=== PATIENT | male | born 1955 | race Caucasian/White ===

== ENCOUNTER 2024-12-19 19:03 | Outpatient (CLI) | payer MEDICARE, SELFPAY | END 2024-12-19 19:04 | disposition home or self-care (01) | LOC: AMB 12-22 09:40 | PROVIDERS: PCP Family Medicine; Visit Provider Internal Medicine | DX: R41.82 Altered mental status, unspecified (principal) | CPT/HCPCS: A0998 ==

== ENCOUNTER 2024-12-19 19:41 | Emergency (ER) | payer MEDICARE, SELFPAY ==
[2024-12-19] VITALS (14 sets, daily range): BP systolic 115–137; BP diastolic 74–86; PULSE 42–51; RESP 15–20; TEMP 36.2; O2SAT 95–100; BMI 23.2
--- OUTSIDE RECORDS SUMMARY | 2024-12-19 19:44 | XMS_ITS | Clinical Summary ---
Author Organization [facility] Address [address] [place] [id number] Care Team Providers Care Nutritional Services Cook Name Role Phone Emir Bagley MD Primary Care Provider Allergies No known active allergies Medications omega-3 fatty acids-vitamin E (FISH OIL) 1,000 mg Cap Take 2 capsules by mouth. 0 0 Active cholecalciferol (VITAMIN D) 1,000 unit capsule Take 4 capsules by mouth once daily. 0 0 Active glucosamine-ara droitin, 500-400 mg, (COSAMIN DS 500/400) 500-400 mg cap Take 1 capsule by mouth 2 times daily. 0 4 Active multivitamin (MVI) tabletIndication s:Routine general medical examination at a health care facility Test 90 tablet 0 Active zolpidem (AMBIEN) 10 mg tabletIndication s:Insomnia, idiopathic Take 1 Tablet (10 mg) by mouth at bedtime if needed for Sleep. 10 Tablet 4 Active tadalafiL (CIALIS) 10 mg tabletIndication s:Erectile dysfunction, unspecified erectile dysfunction type 1/2 to one tab oral daily as needed. Take 30 minutes before sexual activity. 30 Tablet 6 4 Active Active Problems Problem Noted Date Diagnosed Date Erectile dysfunction 01/12/2023 Paroxysmal atrial fib; ablation 2015. 01/12/2023 Prediabetes 01/12/2023 Increased prostate specific antigen (PSA) veloci ty 01/12/2023 Personal history of colonic polyps 05/05/2010 Overview (09/21/2021): Colonoscopy 04/2010 polyps repeat in 5 years Colonoscopy 04/2015 normal repeat in 5 years Colonoscopy 09/2021 polyp, repeat in 7 years Resolved Problems Problem Noted Date Diagnosed Date Resolved Date Paroxysmal A-fib 01/12/2023 06/12/2023 Overview (01/12/2023): Ablation 2014 Paroxysmal atrial fibrillation 01/17/2013 07/14/2021 Encounters Date Type Department Care Team Description 12/19/2024 Telephone [facility] [address] [place] [address] Bina Thakkar AuD hearing aid case 12/10/2024 Orders Only [facility] Scanner 1 scan: (1-Ord) [facility], SHAVE BIOPSY RT NASAL AL, 12/10/2024 12/09/2024 11:00 AM CDT Office Visit [facility] [address] [place] [address] Bina Thakkar AuD Hearing Aid (BUTLER consult) 12/09/2024 10:00 AM CDT Office Visit [facility] [address] [place] [address] Bina Thakkar AuD Hearing Problem (Hearing test) 12/08/2024 Travel 12/02/2024 Telephone [facility] [address] [place] [address] Emir Bagley MD Referral (Hearing Test ) from Last 3 Months Immunizations Immunization Administration Dates Next Due COVID-19 vaccine ([employer] 30mcg/0.3mL) PF, MDV 08/24/2020,08/03/2020 HepA-HepB (Twinrix) 04/22/2008,10/31/2007,200710/26/2007 Influenza, High-dose Quadriv alent Inactivated 06/15/2022 Influenza, IIV3 (Age >=3 years) 04/13/2012,05/10 Influenza, IIV4 05/26/2019,04/21/2014 Influenza, IIV4 (=>6mos) MDV 04/19/2015 Influenza, Inactivated AIIV4 (Age 65+ Years) Preserv Free 06/12/2023,07/14/2021,07/05/2020 Influenza, Injectable, Mdck, Quadrivalent, W/preservative 05/26/2019 Pneumococcal Conj 20-valent (Prevnar 20) 023 Pneumococcal Poly,23-Valent (Pneumovax) 03/05/20 21 Td (Age >=7 Years) 08/29/2000 Td, Preservative Free (age >= 7 Years) 0 Tdap 04/14/2010 Zoster (Shingrix-RZV, recombinant) 03/20/2020, Family History Medical History Relation Name Comments Cancer-prostate Father Andrews Alejandra Sr 70's Hypertension Father Andrews Alejandra Sr Stroke Maternal Grandfather Ronn Tavares TIA's Heart Disease Maternal Grandmother maybe early in life Heart failure Mother Carol Ann Alejandra Stroke Mother Carol Ann Alejandra Other Other AAA in PGF 50's , Father later in life Cancer Sister AML at 70. Relation Name Status Comments Father Andrews Alejandra Sr Alive Maternal Grandfather Ronn Tavares Maternal Grandmother Mother Carol Ann Alejandra Alive Other Sister Social History Tobacco Use Types Packs/Day Years Used Date Smoking Tobacco: Never Smokeless Tobacco: Never Tobacco Cessation:Counseling Given: No Alcohol Use Standard Drinks/Week Comments Yes 2 (1 standard drink = 0.6 oz pur e alcohol) 2-3/week PHQ-2 Answer Date Recorded PHQ-2 TOTAL SCORE 0 03/27/2024 Social Connections Answer Date Recorded Do you often feel lonely or isolated from those around you? 0 03/27/2024 Financial Resource Strain Answer Date R ecorded Difficulty of Paying Living Expenses 3 03/27/2024 Difficulty of Paying Living Expenses Not on file 03/27/2024 Food Insecurity Answer Date Recorded Do you worry your food will run out before you are able to buy more? 1 03/27/2024 Transportation Needs Answer Date Record ed Does lack of transportation keep you from medica l appointments? 1 03/27/2024 Does lack of transportation keep you from work, meetings or getting things that you need? 1 03/27/2024 Housing Stability Answer Date Recorded What is your housing situation today? 1 03/27/2024 Utilities Answer Date Recorded Do you have trouble paying f or utilities (for example, heat, electricity, water, phone)? 1 03/27/2024 Sex and Gender Information Value Date Recorded Sex Assigned at Male 07/10/2021 9:32 PM [employer] Legal Sex Male 5:26 AM [employer] Gender Identity Male 07/10/2021 9:32 PM [employer] Sexual Orientation Straight 07/10/2021 9: 32 PM [employer] Obstetrics History Last Filed Vital Signs Vital Sign Reading Time Taken Comments Blood Pressure 125/77 03/27/2024 7:43 AM CDT Pulse 49 03/27/2024 7:43 AM CDT Temperature 36.9 C (98.4 F) 11/01/2016 10:12 AM CDT Respiratory Rate 16 10/31/2014 7:52 AM CDT Oxygen Saturation 98% 03/27/2024 7:43 AM CDT Inhaled Oxygen Concentration - - Weight 86.3 kg (190 lb 3.2 oz) 03/27/2024 7:43 A M CDT Height 191 cm (6' 3.2) 03/27/2024 7:43 AM CDT Body Mass Index 23.65 03/27/2024 7:43 AM CDT Plan of Treatment Health Maintenance Due Date Last Done Comments COVID-19 vaccine series ( season) 2024 11/01/2021, 05/26/2021, 08/24/2020, Additional history exists Influenza Vaccine (Season Ended) 2025 06/12/2023, 07/14/2021, 07/05/2020, Additional history exists BMI (ht and wt on same day) for age 18+ 03/27/2025 03/27/2024, 01/12/2023, 07/14/2021, Additional history exists Depression screening for age 12+ 03/27/2025 03/27/2024, 01/12/2023, 07/14/2021, Additional history exists Medicare Wellness for age 65+ 03/28/2025, 01/12/2023, 07/14/2021 Colonoscopy through age 75 09/21/202809/21, 09/21/2021, 09/21/2021, Additional history exists Lipids for age 45-75 03/27/2029 03/27/2024, 01/10/2023, 07/13/2021, Additional history exists Tetanus booster 09/15/2029 09/16/2019, 01/2010, 08/29/2000 RSV vaccine for adults or (1 - 1-dose 75+ series) 2030 Hepatitis B series for 19+ Completed 04/22, 10/31/2007, 09/25/2007 Tdap Completed 04/14/2010 Hepatitis C screening for ag e 18-79 Completed 06/18/2015 Zoster (shingles) series for age 50+ Completed 03/20/2020, 09/26/2019 Pneumococcal series for age 50+ Completed 3, 03/05/2021 Procedures Procedure Name Priority Date/Time Associated Diagnosis Comments SCAN-OPERATIVE/PROCE DURE REPORT 12/10/2024 12:00 AM CDT LIPID PANEL W REFLEX MEASURED LDL Routine 03/27/2024 8:34 AM CDT Lipid screening COLONOSCOPY SCREENING Routine 09/21/2021 10:16 AM CDT History of colon polyps ANTI HCV Routine 06/18/2015 7:47 AM [employer] Need for hepatitis C screening test from Last 3 Months or Most Recently Relevant to Health Maintenance Results * SCAN-OPERATIVE/PROCEDURE REPORT (12/10/2024 12:00 AM CDT) us Scanner OTHER Final Result * LIPID PANEL W REFLEX MEASURED LDL (03/27/2024 8:34 AM CDT) CHOLESTEROL, TOTAL 168 <200 mg/dL [facility] HDL CHOLESTEROL 50 > OR = 40 mg/dL [facility] TRIGLYCERIDES 93 <150 mg/dL [facility] LDL-CHOLESTEROL 99 mg/dL (calc) [facility] Comment: Reference range: <100 Desirable range <100 mg/dL for primary prevention; <70 mg/dL for patients with CHD or diabetic patients with > or = 2 CHD risk factors. LDL-C is now calculated using the Taurus-Dixon calculation, which is a validated novel method providing better accuracy than the Friedewald equation in the estimation of LDL-C. Taurus MUIR et al. ANTOINE. 2013;310(19): 2037-2273 (http://education.StepsAway.[employer]/faq/SJV019) CHOL/HDLC RATIO 3.4 <5.0 (calc) [facility] NON HDL CHOLESTEROL 118 <130 mg/dL (calc) [facility] Comment: For patients with diabetes plus 1 major ASCVD risk factor, treating to a non-HDL-C goal of <100 mg/dL (LDL-C of <70 mg/dL) is considered a therapeutic option. Blood BLOOD SPECIMEN / Unknown 03/27/2024 8:34 AM CDT 03/27/2024 8:35 AM CDT Emir Bagley MD CHEMISTRY Final Result [facility] [address] [place] [address], [employer] [id number] * COLONOSCOPY (09/21/2021 10:04 AM CDT) 09/21/2021 10:0 4 AM CDT Narrative Transcriptions Taurus Salgado MD - 09/21/2021 11:10 AM CDT Patient Name: Andrews Alejandra Procedure Date: 09/21/2021 Gender: Male Date of : 1955 Admit Type: Outpatient Procedure: Colonoscopy Proceduralist: Taurus Salgado MD , Jazmin Garcia (Nurse) Referring MD: Emir Bagley Indications/Pre-Op Diagnosis: High risk colon cancer surveillance:Personal history of adenoma less than 10 mm in size, Last colonoscopy: April 2015 Medications: Fentanyl 100 micrograms IV, Midazolam 4 mgIV, The level of sedation administered wasmoderate Procedure Description: The patient had risks, benefits and alternatives explained to andgave informed consent. The patient had a stable cardiopulmonary status and judged an adequate candidate for conscious sedation. The [id number] was passed through the anus and advanced tothe cecum, identified by appendiceal orifice and ileocecal valve. The colonoscopy was performed without difficulty. The patient toleratedthe procedure well. The quality of the bowel preparation was good. The ileocecal valve, appendiceal orifice, and rectum were photographed. Complications: No immediate complications. Estimated Blood Loss & Specimen: Estimated blood loss: none. Specimen collected - None Findings: The perianal and digital rectal examinations were normal. A 3 mm polyp was found in the ascending colon. The polyp was sessile. The polyp was removed with a cold snare. Resection was complete, butthe polyp tissue was not retrieved. The exam was otherwise without abnormality on direct and retroflexion views. The perianal and digital rectal examinations were normal. Impressions/Post-Op Diagnosis: - One 3 mm polyp in the ascending colon, removed with a cold snare. Complete resection. Polyp tissue not retrieved. - The examination was otherwise normal on direct and retroflexionviews. Recommendation: - Patient has a contact number available for emergencies. The signsand symptoms of potential delayed complications were discussed with the patient. Return to normal activities tomorrow. Written discharge instructions were provided to the patient. - Resume previous diet. - Continue present medications. - Repeat colonoscopy in 7 years for surveillance. Moderate Sedation: Moderate (conscious) sedation was administered by the endoscopy nurse and supervised by the endoscopist. The following parameters were monitored: oxygen saturation, heart rate, respiratory rate, blood pressure, adequacy of pulmonary ventilation and reponse to care. Please refer to the patient's medical record flowsheets and nursing notes for moderate sedation details. Total physician intraservice time was 26 minutes. Taurus Salgado MD 09/21/2021 11:10:09 AM This report has been signed electronically. Note Initiated On: 09/21/2021 10:04 AM Procedure Code(s): --- Professional --- 95916, Colonoscopy, flexible; with removalof tumor(s), polyp(s), or other lesion(s) bysnare technique Diagnosis Code(s): --- Professional --- Z86.010, Personal history of colonicpolyps K63.5, Polyp of colon CPT copyright 2020 [employer]. All rights reserved. The codes documented in this report are preliminary and upon care transport nurse reviewmay be revised to meet current compliance requirements. Scope In: 10:41:37 AM Scope Withdrawal Time 0 hours 13 minutes 25 seconds Scope Out: 11:03:44 AM us Taurus Salgado MD PROCEDURE ORD Final Res ult * ANTI HCV [93321.2] (06/18/2015 7:47 AM [employer]) HEPATITIS C ANTIBODY Non-Reacti ve Non-Reacti ve 06/18/2015 2:29 PM [employer] [facility] Blood specimen (specimen) BLOOD SPECIMEN / Unknown Venipuncture / Unknown 06/18/2015 7:47 AM [employer] 06/18/2015 7:47 AM [employer] Narrative [facility] - 06/18/2015 2:29 PM [employer] Antibodies to HCV not detected; does not exclude the possibility of exposure to HCV. us Emir Bagley MD SEND OUTS Final Result [facility] 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, 12/31/2002 * Full Code (Latest Code Status on File) Date Activated Date Inactivated Comments 10/30/2014 6:51 AM 10/30/2014 12:21 PM Care Teams Nutritional Services Cook Relationship Specialty Start Date End Date Emir Bagley MD [address] [place] [address] PCP - General 09/25/07
--- NOTE | 2024-12-19 19:58 | ED_ITS ---
HPI - General Adult General Chief complaint: Neuro Symptoms/Altered Deficit Stated complaint: confusion/leg bouncing/passed out Time Seen by Provider: 12/19/24 19:58 History of Present Illness HPI narrative: around 1845 was making dinner and looking at his phone and reports he was having a strange leg movement and making strange responses to her questions. walked with him to the couch, and he then got very weak and almost fell onto the chair, asked him if he was okay and he responded with I guess I am waking up from the [employer] denies hx of similar events, denies chronic health problems besides a hx of afib ablation in 2014. had some double vision on the way here, states he feels back to normal now. no weakness or obvious [age] old man presenting to the emergency department concern strange behavior Has apparently had of dizzy few days but not necessarily atypical what is atypical however res had a couple of nights of poor sleep. Has been exercising playing [employer] regularly without difficulty. Did take a shot to the left eye but had goggles on. Noted some slight bruising he says. After taking a nap he had, the 1 of the day, he got up discussing what to make for supper with his spouse. He was standing in the kitchen suddenly not responding and staring at his phone. He began lifting his right leg regularly. She guided him to the couch where he sat down in tip to his right and eyes were closed any. Not be responding. Breathing normally. Woke then to prompting and said something about waking from the [employer]. Did not have any sense of chest pressure or shortness of breath or palpitations. He does have a history of atrial fibrillation with an ablation. Following this event he had noted some double vision; not vertical diplopia. No headache. Does not really get headaches. There is no focal loss of strength fresh weakness. Feels normal now. Was not feeling nauseated. Does not feel excessively fatigued at the moment. EMS did evaluate he says with blood sugar of 110. They came by private car to the ER. Spouse notes him to be a joke stir and that thought he was playing around initially. He does not have recollection of this event until told him to call his son is a back shoe cutter and he noted this double vision. Spouse estimates this event of lasted maybe 8-10 minutes. Acknowledges also that he has been under a lot of stress lately Recalls later that he had had a tadalifil and small amount of beer prior to this event. Related Data Home Medications ?Medication ?Instructions ?Recorded ?Confirmed No Known Home Medications 12/19/2412/07 Allergies Allergy/AdvReac Type Severity Reaction Status Date / Time No Known Drug Allergies Allergy Verified 12/19/24 19:50 Review of Systems Status of ROS: Reports: 6 or more systems reviewed and unremarkable except as noted in History and below Exam Narrative: Exam Narrative: Very pleasant. NAD. Good energy. Cranial nerves 2-12 are intact. No nysta gmus evident. Pupils are 3 mm and equal. Moving all extremities without difficulty. Well-perfused Good strength throughout. No ataxia and demonstrated. Head is atraumatic. Heart in slow but regular rate and regular rhythm Const: Vital Signs, click to edit/add: Vital Signs - 24 hr 12/19/24 19:45 12/19/24 19:59 12/19/24 20:00 Temperature 97.1 F L Pulse Rate 43 L 42 L Pulse Rate [Pulse Oximeter] 51 L Respiratory Rate 16 Blood Pressure 132/81 Blood Pressure [Ri ght Upper Arm] 137/74 Pulse Oximetry 97 98 99 Oxygen Delivery Me thod Room Air 12/19/24 20:02 12/19/24 20:15 12/19/24 20:17 Temperature Pulse Rate 43 L 42 L 44 L Pulse Rate [Pulse Oximeter] Respiratory Rate 16 Blood Pressure 121/80 132/86 Blood Pressure [Ri ght Upper Arm] Pulse Oximetry 99 100 97 Oxygen Delivery Me thod 12/19/24 20:30 12/19/24 20:32 12/19/24 20:45 Temperature Pulse Rate 44 L 45 L Pulse Rate [Pulse Oximeter] Respiratory Rate Blood Pressure 115/82 Blood Pressure [Ri ght Upper Arm] Pulse Oximetry 97 97 Oxygen Delivery Me thod 12/19/24 20:47 12/19/24 21:06 12/19/24 21:07 Temperature Pulse Rate 49 L 49 L Pulse Rate [Pulse Oximeter] Respiratory Rate 15 20 Blood Pressure 120/84 129/83 Blood Pressure [Ri ght Upper Arm] Pulse Oximetry 95 98 97 Oxygen Delivery Me thod 12/19/24 21:15 12/19/24 21:17 Temperature Pulse Rate 46 L Pulse Rate [Pulse Oximeter] Respiratory Rate 18 16 Blood Pressure 124/80 Blood Pressure [Ri ght Upper Arm] Pulse Oximetry 99 Oxygen Delivery Me thod Documenting provider has reviewed patient's vital signs: yes Course Vital Signs Vital signs: Initial Vital Signs Temperature 97.1 F L 12/19/24 19:45 Temperature Source Temporal Artery Scan 12/19/24 19:45 Pulse Rate 51 L 12/19/24 19:45 Respiratory Rate 16 12/19/24 19:45 Blood Pressure 137/74 12/19/24 19:45 Blood Pressure Mean 95 12/19/24 19:45 Blood Pressure Position Sitting 12/19/24 19:45 Pulse Oximetry 97 12/19/24 19:45 Oxygen Delivery Method Room Air 12/19/24 19:45 Vital Signs Temperature 97.1 F L 12/19/24 19:45 Pulse Rate 51 L 12/19/24 19:45 Respiratory Rate 16 12/19/24 19:45 Blood Pressure 137/74 12/19/24 19:45 Pulse Oximetry 97 12/19/24 19:45 Oxygen Delivery Method Room Air 12/19/24 19:45 Temperature 97.1 F L 12/19/24 19:45 Pulse Rate 46 L 12/19/24 21:15 Respiratory Rate 16 12/19/24 21:17 Blood Pressure 124/80 12/19/24 21:17 Pulse Oximetry 99 12/19/24 21:15 Oxygen Delivery Method Room Air 12/19/24 19:45 Medical Decision Making MDM Narrative Medical decision making narrative: Asymptomatic at this time. Would not require intervention. Question is best test. This may have been orthostatic event. Do have CT imaging available but no MRI at this time. Would want to assess vascular. Doubtful that has any large vessel occlusion at this point. I did discuss this case with Stroke Neuro. Recommendations are for MRI of brain and MRI vascular studies as outpatient following basic head CT just to confirm no large mass lesion. Is already somewhat bradycardic which might predispose to orthostatic event. Medications and alcohol may have also contributed. Does not appear to be postictal Noncontrast head CT independent reviewed by me looks to be without abnormality. Radiology over-read below TECHNIQUE: CT head without contrast. COMPARISON: None. FINDINGS: No acute intracranial hemorrhage. No CT evidence of acute territorial infarct. No hydrocephalus or midline shift. Normal cerebral parenchymal volume. Mild chronic microvascular ischemic changes. Polypoid mucosal disease of the dysq-hrctpbl-cxsy-right maxillary sinuses. Remainder of the visualized paranasal sinuses and mastoid air cells are well ventilated. No acute calvarial fracture. Chronic appearing deformity of the right zygomatic arch. IMPRESSION: No acute intracranial abnormality. Please note that all CT scans at this facility use dose modulation, iterative reconstruction, and/or weight-based dosing when appropriate to reduce radiation dose to as low as reasonably achievable. Dictated by Luis Mcdonald MD @ 12/19/2024 9:45:13 PM Monitored without event here in the emergency department. See patient discharge plan for further discussion Stay well-hydrated. No restrictions to activity at this time. I think there was likely a constellation of events leading to this event this evening. Recommendations however are for an MRI of your brain. I will place this order and anticipate you to be contacted on Sunday morning to arrange per your travel schedule likely later in the week. Can discuss daily aspirin or other with your primary care provider If you have a repeat event of course please return to the emergency department. Lab Data Lab results reviewed: Yes I reviewed the patient's lab results Labs: Lab Results 12/19/24 12/19/24 Range/Units 20:24 20:50 WBC 6.17 (4.50-11.00) K/uL RBC 4.46 (4.30-5.90) m/uL Hgb 13.5 (13.5-17.5) gm/dL Hct 40.1 (37.0-53.0) % MCV 90 (80-100) fL MCH 30 (26-34) pg MCHC 34 (32-36) gm/dL RDW Coeff of Leslie 12.7 (11.5-15.5) % Plt Count 166 (140-440) K/uL Neut % (Auto) 64.5 (42.0-72.0) % Lymph % (Auto) 25.9 (20-44) % Denali % (Auto) 7.0 (0.0-11.0) % Eos % (Auto) 2.1 (0.0-7.0) % Baso % (Auto) 0.5 (0.0-3.0) % Neut # (Auto) 3.98 (1.7-7.0) K/uL Lymph # (Auto) 1.60 (0.90-2.90) K/uL Denali # (Auto) 0.40 (0.00-0.90) K/UL Eos # (Auto) 0.13 (0.00-0.50) K/uL Baso # (Auto) 0.03 (0.00-0.30) K/uL Abs Immat Gran (auto) 0.00 (0.00-0.30) K/uL Imm/Tot Granulo (auto) 0.0 % Sodium 137 (135-149) mmol/L Potassium 4.1 (3.6-5.1) mmol/L Chloride 102 (96-114) mmol/L Carbon Dioxide 31 (20-32) mmol/L Anion Gap 4 L (7-15) mEq/L BUN 21 (7-30) mg/dL Creatinine 1.1 (0.5-1.5) mg/dL Estimated Creat Clear 75.63 Estimated GFR 73 ml/min Glucose 100 (60-115) mg/dL Calcium 9.2 (8.4-10.6) mg/dL Troponin I < 0.01 (0.01-0.04) ng/mL NT-Pro-B Natriuret Pep 88 (See Note) pg/mL ECG Data Attestation: I personally reviewed and interpreted this ECG as follows: (Sinus bradycardia rate of 49) Discharge Plan Discharge Clinical Impression: Acute alteration in mental status Patient Disposition: Home w/ Parent or Adult Condition: Improved Additional Instructions: Stay well-hydrated. No restrictions to activity at this time. I think there was likely a constellation of events leading to this event this evening. Recommendations however are for an MRI of your brain. I will place this order and anticipate you to be contacted on Sunday morning to arrange per your travel schedule likely later in the week. Can discuss daily aspirin or other with your primary care provider If you have a repeat event of course please return to the emergency department. Prescriptions: No Action No Known Home Medications Follow Up/Referrals: Emir Bagley MD [Primary Care Provider, Family Practice] Stand Alone Forms: [employer] Info Instructions
--- NOTE | 2024-12-19 20:44 | CRLHL7_ITS ---
For Patients: As a result of the Cures Act, medical imaging exams and procedure reports are released immediately into your electronic medical record. You may view this report before your referring provider. If you have questions, please contact your health care provider. INDICATION: Altered mental status. TECHNIQUE: CT head without contrast. COMPARISON: None. FINDINGS: No acute intracranial hemorrhage. No CT evidence of acute territorial infarct. No hydrocephalus or midline shift. Normal cerebral parenchymal volume. Mild chronic microvascular ischemic changes. Polypoid mucosal disease of the ohyq-zrqmvcx-pkwy-right maxillary sinuses. Remainder of the visualized paranasal sinuses and mastoid air cells are well ventilated. No acute calvarial fracture. Chronic appearing deformity of the right zygomatic arch. IMPRESSION: No acute intracranial abnormality. Please note that all CT scans at this facility use dose modulation, iterative reconstruction, and/or weight-based dosing when appropriate to reduce radiation dose to as low as reasonably achievable. Dictated by Luis Mcdonald MD @ 12/19/2024 9:45:13 PM (Electronically Signed)
[2024-12-19 21:06] LABS: Basophils Absolute Auto 0.03 K/uL (0.00-0.30); Basophils Percent Auto 0.5 % (0.0-3.0); Eosinophils Absolute Auto 0.13 K/uL (0.00-0.50); Eosinophils Percent Auto 2.1 % (0.0-7.0); Hematocrit* 40.1 % (37.0-53.0); Hemoglobin* 13.5 gm/dL (13.5-17.5); Lymphocytes Percent Auto 25.9 % (20-44); Mean Corpuscular HGB Conc 34 gm/dL (32-36); Mean Corpuscular Hemoglobin 30 pg (26-34); Mean Corpuscular Volume 90 fL (80-100); Neutrophils Absolute Auto 3.98 K/uL (1.7-7.0); Neutrophils Percent Auto 64.5 % (42.0-72.0); Platelet Count* 166 K/uL (140-440); RDW Coefficient of Variation % 12.7 % (11.5-15.5); Red Blood Count* 4.46 m/uL (4.30-5.90); White Blood Count* 6.17 K/uL (4.50-11.00)
[2024-12-19 21:10] LABS: Slide Review Reflex No
[2024-12-19 21:28] LABS: Chloride* 102 mmol/L (96-114)
[2024-12-19 21:29] LABS: Potassium* 4.1 mmol/L (3.6-5.1); Sodium* 137 mmol/L (135-149)
[2024-12-19 21:32] LABS: Anion Gap 4 mEq/L (7-15); Blood Urea Nitrogen* 21 mg/dL (7-30); Calcium* 9.2 mg/dL (8.4-10.6); Carbon Dioxide* 31 mmol/L (20-32); Creatinine* 1.1 mg/dL (0.5-1.5); Est. Creatinine Clearance* 75.63; Estimated Glomerular Filt Rate 73 ml/min; Glucose* 100 mg/dL (60-115)
[2024-12-19 21:45] LABS: NT Pro B Type NatriureticPept* 88 pg/mL (See Note); Troponin I* < 0.01 ng/mL (0.01-0.04)
== END 2024-12-19 22:21 | disposition home or self-care (01) ==
PROVIDERS: Emergency Provider Family Medicine; PCP Family Medicine
DX: R41.82 Altered mental status, unspecified (principal); Z79.899 Other long term (current) drug therapy
CPT/HCPCS: 36415; 70450; 80048; 83880; 84484; 85025; 99284

== ENCOUNTER 2025-01-01 12:56 | Outpatient (CLI) | payer MEDICARE, SELFPAY ==
--- NOTE | 2025-01-01 13:00 | CRLHL7_ITS ---
For Patients: As a result of the Century Cures Act, medical imaging exams and procedure reports are released immediately into your electronic medical record. You may view this report before your referring provider. If you have questions, please contact your health care provider. Indication: Altered mental status. Technique: MRI brain: Multiplanar multisequence MR imaging prior to and following intravenous administration of 20 mL Dotarem. MRA head: Mpwx-cu-ynnwma imaging. MRA neck: Pmhm-fh-jtflir and postcontrast imaging following intravenous administration of 20 mL Dotarem. Comparison: CT brain 12/19/2024. Findings: MRI brain: Minimal diffuse cerebral volume loss. No mass effect or midline shift. A few punctate FLAIR hyperintensities in the supratentorial white matter, typical for minimal chronic microvascular ischemic changes. No pathologic intracranial enhancement. No intracranial hemorrhage or pathologic extra-axial fluid collection. No diffusion restriction to suggest acute infarction. The major arterial flow voids of the skull base are preserved. Globes are symmetric. Small maxillary sinus retention cysts or polyps. Mastoid air cells are clear. MRA head: Artifact degrades image quality. The internal carotid, middle cerebral, and anterior cerebral arteries are widely patent. The vertebral, basilar, and posterior cerebral arteries are widely patent. No intracranial aneurysm or high-flow vascular malformation. MRA neck: The innominate and subclavian arteries are widely patent. The common carotid arteries are widely patent. The internal carotid arteries are widely patent. The right vertebral artery is dominant. The vertebral arteries are widely patent. Impression: 1. No acute intracranial abnormality. 2. Minimal chronic microvascular ischemic changes and diffuse cerebral volume loss. 3. Unremarkable MRA of the head and neck. Dictated by Murali Clements MD @ 01/01/2025 8:51:59 PM (Electronically Signed)
--- OUTSIDE RECORDS SUMMARY | 2025-01-02 00:50 | XMS_ITS | Continuity of Care Document ---
Author Organization [place] - [facility] Address [address] [place] [address] Assessment Encounter Date Assessment Date Assessment LastModified by Organization Details LastModified Time 12/29/2024 12/29/2024 ASSESSMENT: Patient is a good candidate for conservative care and the prognosis is for a favorable outcome that achieves the patients' goals. We discussed etiology, activity modifications, home care, and other treatment options. Initially, it is recommended that the patient receive in-office treatment 1 times per week for 8 weeks at which time a re-evaluation will be performed to determine an appropriate change in plan. Initially, treatment will focus on joint manipulation to restore range of motion and reduce pain. We will slowly progress to therapeutic exercises and activities to improve function, strength, and stability may also be used as warranted. If the patient is not responding as expected, more invasive procedures will be discussed along with a referral. All considerations above were discussed with the patient and questions answered to satisfaction. If the patient should have any additional questions, or should the condition evolve or worsen, the patient should not hesitate to contact our office. ecram Not available 12/29/2024 14:47:48 Plan of Treatment Reminders Order Date Submit Date Provider Last Modified By Organization Details Last Modified Time Details Appointments None record ed. Lab None record ed. Referral None record ed. Procedures None record ed. Surgeries None record ed. Imaging None record ed. Medication Orders None record ed. Patient TargetsNo targets recorded. Patient InstructionsNo instructions recorded. Reason for Referral None Reported. Problems Name Problem SNOMED Code Status Onset Date Resolution Date Notes Provider Name and Address Organization Details Recorded Time Neck pain 10818717 Active 2024 Carlos Paredes DC [address], [place], [address], [facility] 14:47:49 Cervical segmental dysfunction 642685505 Active 2024 Carlos Paredes DC [address], [facility] [place], [address], [facility] 14:47:49 Lumbar segmental dysfunction 258229907 Active 2024 Carlos Paredes DC [address], [facility] [place], [address], [facility] 14:47:49 Thoracic segmental dysfunction 948052462 Active 2024 Carlos Paredes DC [address], [facility] [place], [address], [facility] 14:47:49 Problem Notes None recorded. Procedures Surgical History Date Name Laterality Status Provider Name and Address Organization Details Recorded Time 23535: Spinal manipulation , 1 to 2 regions completed Carlos Paredes DC [address], [place], [address], [facility] 12/29/2024 14:49:18 Imaging Results None recorded. Procedure Notes None recorded. Medical Equipment None Reported. Vitals None Recorded Social History None recorded. Functional Status None recorded. Mental Status None recorded. Family History Nothing Reported. Medical History No medical history recorded. Past Encounters Encounter ID Performer Location Encounter Start Date Encounter Closed Date Diagnosis/Indication Diagnosis SNOMED-CT Code Diagnosis ICD10 Code Diagnosis Note [id number] [facility] [address] [place] [address] 12/29/2024 11:30:21 12/29/2024 15:00:58 Cervical segmental dysfunction 261020462 M99.01 Neck pain 66606788 M54.2 Thoracic s egmental dysfunction 093449226 M99.02 Lumbar seg mental dysfunction 809368135 M99.03 Health Concerns Section Related Observation LastModified by Organization Detai ls LastModified Time None Recorded Concern Status LastModified by Organization Details LastModified Time None Recorded Payers Encounter Date Sequence Insurance Name Policy Number Policy Erwin Covered Member ID Erwin Member ID Guarantor Name 12/29/2024 [facility] Pravin Alejandra [id number] Pravin Alejandra Notes Date Note Type Note Provider Name and Address Organization Details Recorded Time 12/29/2024 text/html HPI - Cervical SpineReported bypatient.Location: bilateral Quality:aching Severity:moderate; severe Duration:1 weeks Timing:acute Context:sports injury Alleviating Factors:nothing helps Aggravating Factors:bending; twisting/turning Associated Symptoms:no numbness/tingling Carlos Paredes DC [address], [place], [address], [facility] 12/29/2024 14:52:35
--- OUTSIDE RECORDS SUMMARY | 2025-01-02 00:50 | XMS_ITS | Data Portability ---
Author Organization [place] - [facility], [email or web address] MEDIA DIRECTOR [facility] Address [address] [place] [address] Assessment Encounter Date Assessment Date Assessment LastModified [...] Address Organization Details Recorded Time Neck pain 59064333 Active 2024 Carlos Paredes DC [address], [place], [address], [facility] 14:47:49 Cervical segmental dysfunction 534631412 Active 2024 Carlos Paredes DC [address], [place], [address], [facility] 14:47:49 Lumbar segmental dysfunction 250278866 Active 2024 Carlos Paredes DC [address], [place], [address], [facility] 14:47:49 Thoracic segmental dysfunction 382446320 Active 2024 Carlos Paredes DC [address], [place], [address], [facility] 14:47:49 Problem Notes None recorded. Procedures Surgical History Date Name Laterality Status Provider Name and Address Organization Details Recorded Time 25597: Spinal manipulation , 1 to 2 regions completed Carlos Paredes DC [address], [place], [address], [facility] 12/29/2024 14:49:18 Imaging Results None recorded. Procedure Notes None recorded. Medical Equipment None Reported. Vitals None Recorded Social History None recorded. Functional Status None recorded. Mental Status None recorded. Family History Nothing Reported. Medical History No medical history recorded. Past Encounters Encounter ID Performer Location Encounter Start Date Encounter Closed Date Diagnosis/Indication Diagnosis SNOMED-CT Code Diagnosis ICD10 Code Diagnosis Note [id number] MIKAEL Guevara [facility] [address] [place] [address] 12/29/2024 11:30:21 12/29/2024 15:00:58 Cervical segmental dysfunction 513462243 M99.01 Neck pain 42287826 M54.2 Thoracic s egmental dysfunction 703793519 M99.02 Lumbar seg mental dysfunction 727938337 M99.03 Health Concerns Section Related Observation LastModified by Organization Detai ls LastModified Time None Recorded Concern Status LastModified by Organization Details LastModified Time None Recorded Advance Directives Directive None Recorded Payers Insurance Date Sequence Insurance Name Policy Number Policy Erwin Covered Member ID Erwin Member ID Guarantor Name 12/29/2024 [facility] Pravin Alejandra [id number] Pravin Alejandra 12/29/2024 1 [facility] (O) [id number] Riki Alejandra [id number] Pravin Alejandra Notes Date Note Type Note Provider Name and Address Organization Details Recorded Time 12/29/2024 text/html HPI - Cervical SpineReported bypatient.Location: bilateral Quality:aching Severity:moderate; severe Duration:1 weeks Timing:acute Context:sports injury Alleviating Factors:nothing helps Aggravating Factors:bending; twisting/turning Associated Symptoms:no numbness/tingling Carlos Paredes DC [address], [place], [address], [facility] 12/29/2024 14:52:35
--- OUTSIDE RECORDS SUMMARY | 2025-01-02 00:51 | XMS_ITS | Clinical Summary ---
Author Organization [facility] Address [address] [place] [address] Care Team Providers Care Lurer Name Role Phone Emir Bagley MD Primary [...] Encounters Date Type Department Care Team Description 12/29/2024 9:00 AM CDT Ancillary Procedure [facility] [address] [place] [address] 12/29/2024 Travel 12/19/2024 Orders Only [facility] Scanner 1 scan: (1-Ord) [facility], CT HEAD/BRAIN WO CONTRAST , 12/19/2024 12/19/[address] [address] Bnia Thakkar AuD hearing aid case 12/10/2024 Orders Only [facility] Scanner 1 scan: (1-Ord) [facility], SHAVE BIOPSY RT NASAL AL, 12/10/2024 12/09/2024 11:00 AM CDT Office Visit [facility] [address] [place] [address] Bina Thakkar AuD Hearing Aid (BUTLER consult) 12/09/2024 10:00 AM CDT Office Visit [facility] [address] [place] [address] Bina Thakkar AuD Hearing Problem (Hearing test) 12/08/2024 Travel 12/02/2024 Telephone [facility] [address] [place] [address] Emir Bagley MD Referral (Hearing Test ) from Last 3 Months Immunizations Immunization Administration Dates Next Due COVID-19 vaccine (Startapp-Bio NTech 30mcg/0.3mL) MUNDO BRENNER 08/24/2020,08/03/2020 HepA-HepB (Twinrix) 04/22/2008,10/31/2007,200710/26/2007 Influenza, High-dose Quadriv [...] Medical History Relation Name Comments Cancer-prostate Father Anrdews Camacho Sr 70's Hypertension Father Andrews Camacho Sr Stroke Maternal Grandfather Ronn Tavares TIA's Heart Disease Maternal Grandmother maybe early in life Heart failure Mother Carol Ann Camacho Stroke Mother Carol Ann Camacho Other Other AAA in PGF 50's , Father later in life Cancer Sister AML at 70. Relation Name Status Comments Father Andrews Camacho Sr Alive Maternal Grandfather Ronn Tavares Maternal Grandmother Mother Carol Ann Camacho Alive Other Sister Social History Tobacco Use [...] Sex Assigned at Male 07/10/2021 9:32 PM INFORMATION SERVICES MANAGER Legal Sex Male 5:26 AM INFORMATION SERVICES MANAGER Gender Identity Male 07/10/2021 9:32 PM INFORMATION SERVICES MANAGER Sexual Orientation Straight 07/10/2021 9: 32 PM INFORMATION SERVICES MANAGER Obstetrics History Last Filed Vital Signs Vital [...] 09/26/2019 Pneumococcal series for age 50+ Completed , 03/05/2021 Procedures Procedure Name Priority Date/Time Associated Diagnosis Comments ECHO TTE COMPLETE WO CONTRAST Routine 12/29/2024 9:29 AM CDT History of transient ischemic attack (TIA) SCAN-CT INTERPRETATION 12:00 AM CDT SCAN-OPERATIVE/PROCEDUR E REPORT 12/10/2024 12:00 AM CDT LIPID PANEL W REFLEX MEASURED LDL Routine 03/27/2024 8:34 AM CDT Lipid screening COLONOSCOPY SCREENING Routine 09/21/2021 10:16 AM CDT History of colon polyps ANTI HCV Routine 06/18/2015 7:47 AM INFORMATION SERVICES MANAGER Need for hepatitis C screening test from Last 3 Months or Most Recently Relevant to Health Maintenance Results * ECHO TTE COMPLETE WO CONTRAST (12/29/2024 9:29 AM CDT) AORTIC VALVE MEAN PG 5 mmHg EJECTION FRACTION 58 % LVEDD 4.8 cm EJECTION FRACTION 55 - 60% Anatomical Region Laterality Modality Ultrasound 12/29/2024 9:09 AM CDT Narrative 12/29/2024 9:40 AM CDT ECHOCARDIOGRAM ANDREWS CAMACHO : 1955 69 years Study Date: 12/29/2024 9:09:27 AM Gender: M BP: 126/61 mmHg Height: 191.00 cm BSA: 2.15 m Weight: 86.00 kg Tech: [facility] Referring MD: EMIR BAGLEY Site: [facility] Reading Location: Mobile-OP Patient Location: Outpatient. Procedure: 2D, Color Doppler and Spectral Doppler. Indication for study: Hx of TIA Cardiac Rhythm: Regular.Study quality: Good. Final Impressions: 1. Normal LV size, normal wall thickness, normal global systolic function with an estimated EF of 55 - 60%. 2. Right ventricular cavity size is normal, global systolic RV function is normal. 3. No significant valve disease detected. 4. No pericardial effusion. Comparison There are no prior studies on this patient for comparison purposes. Chamber Sizes and Function Normal left ventricular size, normal wall thickness, normal global systolic function with an estimated EF of 55 - 60%. No resting regional wall motion abnormality visualized. Left atrial size is normal. Left atrial pressure is normal. Right ventricular cavity size is normal, global systolic RV function is normal. RV wall thickness is normal. The right atrium is mildly enlarged. Right atrial volume index is 33 ml/m . Right atrial area is 23 cm . The pulmonary artery is of normal size and origin. The sinus of Valsalva is normal sized. The ascending aorta is normal sized. Valves, RV Pressures and Diastolic Function The aortic valve is normal in structure and trileaflet, no stenosis and trivial regurgitation. The mitral valve is normal in structure, trace mitral regurgitation. Normal diastolic function for age. The tricuspid valve is normal in structure, trace tricuspid regurgitation. Unable to assess right ventricular systolic pressure. The pulmonic valve is normal. No pulmonary regurgitation. Masses, Effusion, Shunts There is no pericardial effusion. The inferior vena cava is normal sized, respiratory size variation greater than 50%. No left to right shunting was detected by limited color flow Doppler interrogation of the interatrial septum. MEASUREMENTS AND CALCULATIONS 2-D Measurements and LV Function: LVID (d) 4.8 cm LV FS% (2D) 30 % LVID (s) 3.4 cm LVOT diameter 2.2 cm IVS (d) 1.0 cm HR 52 bpm LVPW (d) 1.0 cm LA Vol index 32 ml/m2 Ao Sinus 3.3 cm RA Vol index 33 ml/m2 Ao Sinus ULN 4.2 cm * RA area 23 cm Asc Ao 3.4 cm RV Basal Diam 3.9 cm Asc Ao ULN 4.3 cm * LA 5.2 cm * Input BSA outside of range, reported values correspond to BSA = 2.1 Diastology: Mitral Tissue Doppler E Peak 0.8 m/s e', Septum 0.06 m/s A Peak 0.3 m/s e', Lateral 0.09 m/s E/A 2.2 E/e' Average 9.88 DT 238 msec Aortic Valve: Vmax 1.4 m/s DELGADO (V) 3.19 cm VTI 0.29 m DELGADO (I) 3.00 cm LVOT V max 1.1 m/s Max PG 8 mmHg LVOT VTI 0.22 m Mean PG 5 mmHg SV 86 ml Dim Index 0.77 SV index 40 ml/m CO 4.5 l/min CI 2.1 l/min/m Mitral Valve: MVA 3.2 cm MV P 1/2 69 msec Tricuspid Valve and estimated PA pressures: TAPSE 2.0 cm Pulmonic Valve: PV AT 128 msec . This study was interpreted by an [facility] accredited facility. Final Procedure Note Aden Arias MD - 12/29/2024 ECHOCARDIOGRAM ANDREWS CAMACHO : 1955 69 years Study Date: 12/29/2024 9:09:27 AM Gender: M BP: 126/61 mmHg Height: 191.00 cm BSA: 2.15 m Weight: 86.00 kg Tech: [facility] Referring MD: EMIR BAGLEY Site: [facility] Reading Location: Mobile-OP Patient Location: Outpatient. Procedure: 2D, Color Doppler and Spectral Doppler. Indication for study: Hx of TIA Cardiac Rhythm: Regular.Study quality: Good. Final Impressions: 1. Normal LV size, normal wall thickness, normal global systolic functionwith an estimated EF of 55 - 60%. 2. Right ventricular cavity size is normal, global systolic RV functionis normal. 3. No significant valve disease detected. 4. No pericardial effusion. Comparison There are no prior studies on this patient for comparison purposes. Chamber Sizes and Function Normal left ventricular size, normal wall thickness, normal globalsystolic function with an estimated EF of 55 - 60%. No resting regionalwall motion abnormality visualized. Left atrial size is normal. Leftatrial pressure is normal. Right ventricular cavity size is normal, globalsystolic RV function is normal. RV wall thickness is normal. The rightatrium is mildly enlarged. Right atrial volume index is 33 ml/m . Rightatrial area is 23 cm . The pulmonary artery is of normal size and origin.The sinus of Valsalva is normal sized. The ascending aorta is normalsized. Valves, RV Pressures and Diastolic Function The aortic valve is normal in structure and trileaflet, no stenosis andtrivial regurgitation. The mitral valve is normal in structure, tracemitral regurgitation. Normal diastolic function for age. The tricuspidvalve is normal in structure, trace tricuspid regurgitation. Unable toassess right ventricular systolic pressure. The pulmonic valve is normal.No pulmonary regurgitation. Masses, Effusion, Shunts There is no pericardial effusion. The inferior vena cava is normal sized,respiratory size variation greater than 50%. No left to right shunting wasdetected by limited color flow Doppler interrogation of the interatrialseptum. MEASUREMENTS AND CALCULATIONS 2-D Measurements and LV Function: LVID (d) 4.8 cm LV FS% (2D) 30% LVID (s) 3.4 cm LVOT diameter2.2 cm IVS (d) 1.0 cm HR 52bpm LVPW (d) 1.0 cm LA Vol index 32ml/m2 Ao Sinus 3.3 cm RA Vol index 33ml/m2 Ao Sinus ULN 4.2 cm * RA area 23cm Asc Ao 3.4 cm RV Basal Diam3.9 cm Asc Ao ULN 4.3 cm * LA 5.2 cm * Input BSA outside of range, reported values correspond to BSA = 2.1 Diastology: Mitral Tissue Doppler E Peak 0.8 m/s e', Septum 0.06 m/s A Peak 0.3 m/s e', Lateral 0.09 m/s E/A 2.2 E/e' Average 9.88 DT 238 msec Aortic Valve: Vmax 1.4 m/s DELGADO (V) 3.19 cm VTI 0.29 m DELGADO (I) 3.00 cm LVOT V max 1.1 m/s Max PG 8 mmHg LVOT VTI 0.22 m Mean PG 5 mmHg SV 86 ml Dim Index 0.77 SV index 40 ml/m CO 4.5 l/min CI 2.1 l/min/m Mitral Valve: MVA 3.2 cm MV P 1/2 69 msec Tricuspid Valve and estimated PA pressures: TAPSE 2.0 cm Pulmonic Valve: PV AT 128 msec . This study was interpreted by an [facility] accredited facility. Final us Emir Bagley MD ECHO ORD Final Result * SCAN-CT INTERPRETATION (12/19/2024 12:00 AM CDT) Anatomical Region Laterality Modality Other us Scanner OTHER Final Result * SCAN-OPERATIVE/PROCEDURE REPORT (12/10/2024 12:00 AM CDT) [...] LDL-C. Taurus MUIR et al. ANTOINE. 2013;310(19): 2544-2974 (http://education.[employer]/faq/ASP231) CHOL/HDLC RATIO 3.4 <5.0 (calc) [facility] [place] NON HDL CHOLESTEROL 118 <130 mg/dL (calc) [facility] [place] Comment: For patients with diabetes plus 1 major ASCVD risk factor, treating to a non-HDL-C goal of <100 mg/dL (LDL-C of <70 mg/dL) is considered a therapeutic option. Blood BLOOD SPECIMEN / Unknown 03/27/2024 8:34 AM CDT 03/27/2024 8:35 AM CDT Emir Bagley MD CHEMISTRY Final Result [employer] [facility] [address] [place] [address], [facility] [address] [place] [address] * COLONOSCOPY (09/21/2021 10:04 AM CDT) 09/21/2021 10:0 4 AM CDT Narrative Transcriptions Taurus Salgado MD - 09/21/2021 11:10 AM CDT Patient Name: Andrews Camacho Procedure Date: 09/21/2021 Gender: Male Date of [...] adequate candidate for conscious sedation. The [id number] was passed through the anus and advanced [...] 10:04 AM Procedure Code(s): --- Professional --- 48855, Colonoscopy, flexible; with removalof tumor(s), polyp(s), or other lesion(s) bysnare technique Diagnosis Code(s): --- Professional --- Z86.010, Personal history of colonicpolyps K63.5, Polyp of colon CPT copyright 2020 [employer]. All rights reserved. The codes documented in this report are preliminary and upon data coder operator reviewmay be revised to meet current compliance requirements. Scope In: 10:41:37 AM Scope Withdrawal Time 0 hours 13 minutes 25 seconds Scope Out: 11:03:44 AM us Taurus Salgado MD PROCEDURE ORD Final Res ult * ANTI HCV [90671.2] (06/18/2015 7:47 AM INFORMATION SERVICES MANAGER) HEPATITIS C ANTIBODY Non-Reacti ve Non-Reacti ve 06/18/2015 2:29 PM INFORMATION SERVICES MANAGER [facility] Blood specimen (specimen) BLOOD SPECIMEN / Unknown Venipuncture / Unknown 06/18/2015 7:47 AM INFORMATION SERVICES MANAGER 06/18/2015 7:47 AM INFORMATION SERVICES MANAGER Narrative [facility] - 06/18/2015 2:29 PM INFORMATION SERVICES MANAGER Antibodies to HCV not detected; does not exclude the possibility of exposure to HCV. us Emir Bagley MD SEND OUTS Final Result [facility] [address] [place] [address], [place] from Last 3 Months or Most Recently Relevant to Health Maintenance Insurance [employer] MED[employer]ARE [employer]VANTAGE MR Advance Directives Documents on File Type Date Recorded Patient Cosmetician Expl anation Healthcare Directive 07/05/2017 12:09 PM [facility], 02/16/2017 Healthcare Directive 10/22/2014 3:03 PM [facility], 12/31/2002 * Full Code (Latest Code Status on File) Date Activated Date Inactivated Comments 10/30/2014 6:51 AM 10/30/2014 12:21 PM Care Teams Lurer Relationship Specialty Start Date End Date Emir Bagley MD [address] [place] [address] PCP - General 09/25/07
== END 2025-01-01 12:57 | disposition home or self-care (01) ==
LOC: MRI 12:58
PROVIDERS: PCP Family Medicine; Visit Provider Family Medicine
DX: R41.82 Altered mental status, unspecified (principal); I67.82 Cerebral ischemia
CPT/HCPCS: 70544; 70549; 70553; A9575